=== PATIENT | male | born 1965 | race Caucasian/White ===

== ENCOUNTER 2017-01-23 10:45 | Emergency (ER) | payer SELFPAY ==
[2017-01-23] MEDS ORDERED: ASPIRIN 81 MG TABLET, CHEWABLE PO ONE (11:00)
--- NOTE | 2017-01-23 11:04 | ER Document Report ---
ED Medical Screen (RME) - General Stated Complaint: SHORTNESS OF BREATH Mode of Arrival: Wheelchair Information source: Patient Notes: Patient complains of swelling to the neck and difficulty for the past 3 weeks. Patient states that symptoms worsened over the past 3 days. Patient anxious in triage. Patient with a palpable nodule superior aspect of thyroid. Patient does complain of some chest pain off and on over the past several days. hx: None I have greeted and performed a rapid initial assessment of this patient. A comprehensive ED assessment and evaluation of the patient, analysis of test results and completion of the medical decision making process will be conducted by additional ED providers. TRAVEL OUTSIDE OF THE [place] IN LAST 30 DAYS: No - Related Data Allergies/Adverse Reactions: sulfamethoxazole [From Septra DS] Allergy (Severe, Verified 01/23/17 10:58) Angioedema trimethoprim [From Septra DS] Allergy (Severe, Verified 01/23/17 10:58) Angioedema venom-wasp [Wasp Venom] Allergy (Severe, Verified 01/23/17 10:58) Anaphylaxis Past Medical History Past Surgical History: Reports: Hx Orthopedic Surgery - L elbow - Immunizations Hx Diphtheria, Pertussis, Tetanus Vaccination: Yes Physical Exam - Vital signs Vitals: Temp Pulse Resp BP Pulse Ox 97.6 F 97 26 H 117/84 98 01/23/17 10:54 01/23/17 10:54 01/23/17 10:54 01/23/17 10:54 01/23/17 10:54 - HEENT Neck: Neck mass - Superior aspect of thyroid, palpable nodule Notes: Patient able to manage his oral secretions. - Respiratory Respiratory status: Tachypnea Chest status: Nontender Breath sounds: Nonproductive cough, Wheezing Course - Re-evaluation Re-evalutation: 01/23/17 11:[address] Cai who recommends ordering ultrasound of neck. - Vital Signs Vital signs: Temp Pulse Resp BP Pulse Ox 97.6 F 97 26 H 117/84 98 01/23/17 10:54 01/23/17 10:54 01/23/17 10:54 01/23/17 10:54 01/23/17 10:54
[2017-01-23 11:33] LABS: ABSOLUTE BASOPHILS # (AUTO) 0.1 10^3/uL (0.0-0.2); ABSOLUTE EOSINOPHILS # (AUTO) 0.2 10^3/uL (0.0-0.6); ABSOLUTE LYMPHOCYTES (AUTO) 2.5 10^3/uL (0.5-4.7); ABSOLUTE MONOCYTES (AUTO) 0.5 10^3/uL (0.1-1.4); BASOPHILS % (AUTO) 0.6 % (0-2); EOSINOPHILS % (AUTO) 1.7 % (0-6); HEMATOCRIT 44.6 % (37.9-51.0); HEMOGLOBIN 15.9 g/dL (13.5-17.0); HGB HCT DIFFERENCE 3.1; LYMPHOCYTES % (AUTO) 26.9 % (13-45); MEAN CORPUSCULAR HEMOGLOBIN 34.6 pg (27.0-33.4); MEAN CORPUSCULAR HGB CONC 35.6 g/dL (32.0-36.0); MEAN CORPUSCULAR VOLUME 97 fl (80-97); MONOCYTES % (AUTO) 5.5 % (3-13); RED BLOOD COUNT 4.59 10^6/uL (4.35-5.55); RED CELL DISTRIBUTION WIDTH 12.6 % (11.5-14.0); SEGMENTED NEUTROPHILS % (AUTO) 65.3 % (42-78); WHITE BLOOD COUNT 9.3 10^3/uL (4.0-10.5)
[2017-01-23 11:54] LABS: ALANINE AMINOTRANSFERASE 29 U/L (21-72); ALBUMIN 4.3 g/dL (3.5-5.0); ALKALINE PHOSPHATASE 83 U/L (38-126); ANION GAP 15 (5-19); ASPARTATE AMINO TRANSFERASE 18 U/L (17-59); BILIRUBIN,DIRECT 0.3 mg/dL (0.0-0.4); BILIRUBIN,TOTAL 0.5 mg/dL (0.2-1.3); BLOOD UREA NITROGEN 19 mg/dL (7-20); CALCIUM 9.8 mg/dL (8.4-10.2); CARBON DIOXIDE 21 mmol/L (22-30); CHLORIDE 107 mmol/L (98-107); CREATINE KINASE 79 U/L (55-170); CREATININE RESULT 0.88 mg/dL (0.52-1.25); GLUCOSE 103 mg/dL (75-110); POTASSIUM 4.7 mmol/L (3.6-5.0); SODIUM 142.6 mmol/L (137-145); TOTAL PROTEIN 6.8 g/dL (6.3-8.2)
[2017-01-23 12:09] LABS: TROPONIN I < 0.012 ng/mL
--- NOTE | 2017-01-23 13:17 | EKG REPORT ---
SEVERITY:- NORMAL ECG - SINUS RHYTHM : Confirmed by: Juan Reza MD 23-Jan-2017 13:16:22
--- NOTE | 2017-01-23 15:04 | ER Document Report ---
ED General <KAREN BENZ - Last Filed: 01/23/17 18:35> - General Time seen by provider: 15:10 Mode of Arrival: Wheelchair Information source: Patient TRAVEL OUTSIDE OF THE [place] IN LAST 30 DAYS: No - HPI Onset: Other - see HPI note Associated symptoms: Nonproductive cough, Hurts to breath, Sore throat. denies : Fever Exacerbated by: Coughing, Deep breathing, Other - swallowing <CHARLES GAINES - Last Filed: 01/23/17 18:38> - General Chief Complaint: Shortness Of Breath Stated Complaint: SHORTNESS OF BREATH Notes: Patient is a 51 year old male presenting to the emergency department for swelling and pain in his neck. Patient states he has had these symptoms for the past 3 weeks and they have worsened over the past 3 days. Patient complains of the swelling and pain to this throat. Patient states his pain is exacerbated with coughing. Patient complains of an increased difficulty breathing due to the swelling and pain. Patient also complains of a persistent headache. Patient is not taking any regular medications and does not currently have a primary care physician. (CHARLES GAINES) - Related Data Allergies/Adverse Reactions: sulfamethoxazole [From Septra DS] Allergy (Severe, Verified 01/23/17 10:58) Angioedema trimethoprim [From Septra DS] Allergy (Severe, Verified 01/23/17 10:58) Angioedema venom-wasp [Wasp Venom] Allergy (Severe, Verified 01/23/17 10:58) Anaphylaxis Past Medical History - General Information source: Patient - Social History Smoking Status: Current Every Day Smoker Chew tobacco use (# tins/day): No Frequency of alcohol use: Occasional Drug Abuse: None Family History: None Patient has suicidal ideation: No Patient has homicidal ideation: No - Medical History Medical History: Negative Past Surgical History: Reports: Hx Orthopedic Surgery - L elbow - Immunizations Hx Diphtheria, Pertussis, Tetanus Vaccination: Yes Hx Pneumococcal Vaccination: 01/28/13 <CHARLES GAINES - Last Filed: 01/23/17 18:38> Review of Systems - Review of Systems Constitutional: No symptoms reported. denies: Fever EENT: See HPI Cardiovascular: No symptoms reported Respiratory: No symptoms reported Gastrointestinal: No symptoms reported Genitourinary: No symptoms reported Male Genitourinary: No symptoms reported Musculoskeletal: See HPI Skin: No symptoms reported Hematologic/Lymphatic: No symptoms reported Neurological/Psychological: See HPI, Headaches -: Yes All other systems reviewed and negative <CHARLES GAINES - Last Filed: 01/23/17 18:38> Physical Exam <MELLISAKAREN - Last Filed: 01/23/17 18:35> - Vital signs Interpretation: Normal <CHARLES GAINES - Last Filed: 01/23/17 18:38> - Vital signs Vitals: Temp Pulse Resp BP Pulse Ox 97.6 F 97 26 H 117/84 98 01/23/17 10:54 01/23/17 10:54 01/23/17 10:54 01/23/17 10:54 01/23/17 10:54 - Notes Notes: GENERAL: Well-appearing, well-nourished and in no acute distress HEAD: Atraumatic, normocephalic EYES: Pupils equal round and reactive to light, extraocular movements intact, sclera anicteric, no conjunctival injection or discharge ENT: Nares patent, oropharynx clear without exudates, moist mucous membranes, normal TMs NECK: Normal range of motion, mobile right submandibular lymph node LUNGS: Decreased breath sounds bilaterally, mild wheezing HEART: Regular rate and rhythm without murmurs ABDOMEN: Soft, non-tender, normoactive bowel sounds. No guarding, no rebound. No masses appreciated. No [place] sign BACK: No CVA tenderness. EXTREMITIES: Normal range of motion, no calf tenderness, no edema NEUROLOGICAL: Cranial nerves grossly intact. Normal speech, voice is slightly hoarse, Normal sensory and motor exams. No gross cerebellar abnormalities PSYCH: Anxious, normal affect SKIN: Warm, Dry, normal turgor, no lesions noted (CHARLES GAINES) Course - Laboratory Result Diagrams: 01/23/17 11:18 01/23/17 11:18 - Diagnostic Test Radiology reviewed: Reports reviewed - Chest x-ray shows no active disease and thyroid ultrasound shows enlarged right anterior cervical submandibular lymph node - EKG Interpretation by Sd EKG shows normal: Sinus rhythm - Mild J-point elevation <KAREN BENZ - Last Filed: 01/23/17 18:35> - Laboratory Result Diagrams: 01/23/17 11:18 01/23/17 11:18 - Consults Dr. Vilchis Time consulted: 18:24 Consulted provider: follow-up in office <CHARLES GAINES - Last Filed: 01/23/17 18:38> - Re-evaluation Re-evalutation: 01/23/17 18:31 At the patient's request I spoke with he and his regarding the CT scan things showing a soft tissue mass and fluid collection possibly cystic structure near the right vallecula. With his social history, this would be concerning for cancer as I discussed with him but that he will need further evaluation. We have no ear nose and throat work environment safety inspector, but I did speak with Dr. Vilchis from oncology and he will work the patient in tomorrow and coordinate with ENT for further evaluation and treatment. The patient understands the importance of this, potential diagnosis as well as needed to keep follow-up tomorrow as a work in per Dr. Vilchis. (KAREN BENZ) - Vital Signs Vital signs: Temp Pulse Resp BP Pulse Ox 97.6 F 97 26 H 117/84 98 01/23/17 10:54 01/23/17 10:54 01/23/17 10:54 01/23/17 10:54 01/23/17 10:54 - Laboratory Laboratory results interpreted by me: 01/23/17 01/23/17 11:18 11:18 MCH 34.6 H Carbon Dioxide 21 L - Consults Dr. Vilchis Reason for consultation: 01/23/17 18:[address] Vilchis and discussed patient; patient will follow-up with Dr. Vilchis in the office tomorrow. (CHARLES GAINES) Discharge <KAREN BENZ - Last Filed: 01/23/17 18:35> <CHARLES GAINES - Last Filed: 01/23/17 18:38> - Discharge Clinical Impression: Vallecular mass Disposition: HOME, SELF-CARE Forms: Smoking Cessation Education Referrals: STEPHEN VILCHIS MD [ACTIVE STAFF] - Follow up tomorrow (Call after 8:30 in the morning for walk-in with Dr. Vilchis tomorrow as I discussed with him. Let them know I talked with him and he agrees with this.) Scribe Attestation: 01/23/17 18:35 I personally performed the services described in the documentation, reviewed and edited the documentation which was dictated to the scribe in my presence, and it accurately records my words and actions. (KAREN BENZ) Scribe Documentation - Scribe Written by Henry:: Charles aGines 01/23/17 15:20 acting as scribe for :: Mellisa <CHARLES GAINES - Last Filed: 01/23/17 18:38>
[2017-01-23] MEDS ORDERED: ACETAMINOPHEN 325 MG TABLET ONE (17:48)
[2017-01-23 18:54] VITALS: BP 139/90
== END 2017-01-23 18:38 | disposition home or self-care (01) ==
LOC: ER 10:45
DX: R22.1 Localized swelling, mass and lump, neck (principal); R59.0 Localized enlarged lymph nodes; M54.2 Cervicalgia; R07.81 Pleurodynia; R05 Cough; J02.9 Acute pharyngitis, unspecified; R06.00 Dyspnea, unspecified; R06.2 Wheezing; R51 Headache; F17.200 Nicotine dependence, unspecified, uncomplicated; Z88.1 Allergy status to other antibiotic agents; Z91.038 Other insect allergy status; R49.0 Dysphonia
CPT/HCPCS: 36415; 70491; 71020; 76536; 80053; 82550; 82553; 84443; 84484; 85025; 93005; 93010; 99285

== ENCOUNTER 2017-03-08 11:08 | Emergency (ER) | payer OTHER ==
[2017-03-08 11:14] VITALS: BP 157/101
[2017-03-08] MEDS ORDERED: DIPH/PERTUSS(ACELL)/TETANUS VAC/PF 0.5 ML SYR (>=10YO) IM ONE (11:27)
[2017-03-08] MEDS ORDERED: OXYCODONE-ACETAMINOPHEN 5-325 MG TABLET PO ONE (11:27)
--- NOTE | 2017-03-08 11:30 | ER Document Report ---
HPI - HPI Patient complains to provider of: hand injury Onset: Yesterday Onset/Duration: Sudden Quality of pain: Sharp Pain Level: 5 Context: Patient states he was working on a vehicle and the wind caught the vehicle door crushing his left hand. Patient complains of pain over left second through fifth metacarpals. He shouldn't is right-hand dominant. Associated Symptoms: Other - Left hand injury Exacerbated by: Movement Relieved by: Denies Similar symptoms previously: No Recently seen / treated by doctor: No - ROS ROS below otherwise negative: Yes Systems Reviewed and Negative: Yes All other systems reviewed and negative - CONSTITUTIONAL Constitutional: DENIES: Fever - GASTROINTESTINAL Gastrointestinal: DENIES: Nausea - MUSCULOSKELETAL Musculoskeletal: REPORTS: Extremity pain - Left hand, Swelling - DERM Skin Color: Normal Skin Problems: Abrasion - Abrasion over left hand Past Medical History - General Information source: Patient - Social History Smoking Status: Current Every Day Smoker Frequency of alcohol use: Occasional Drug Abuse: None Occupation: truck driver teamster Family History: None Patient has suicidal ideation: No Patient has homicidal ideation: No Renal/ Medical History: Denies: Hx Peritoneal Dialysis Malignancy Medical History: Reports Other - Currently being worked up for possible throat cancer Past Surgical History: Reports: Hx Orthopedic Surgery - L elbow - Immunizations Hx Diphtheria, Pertussis, Tetanus Vaccination: Yes Hx Pneumococcal Vaccination: 01/28/13 Vertical Provider Document - CONSTITUTIONAL Agree With Documented VS: Yes Exam Limitations: No Limitations General Appearance: WD/WN, No Apparent Distress - INFECTION CONTROL TRAVEL OUTSIDE OF THE [place] IN LAST 30 DAYS: No - HEENT HEENT: Atraumatic, Normocephalic - RESPIRATORY Respiratory: No Respiratory Distress O2 Sat by Pulse Oximetry: 96 - CARDIOVASCULAR Pulses: Normal: Radial - MUSCULOSKELETAL/EXTREMETIES Musculoskeletal/Extremeties: MAEW, Tender - Left hand tenderness over left second through fifth metacarpals with 2+ edema. Small abrasion over left fourth metacarpal - NEURO Level of Consciousness: Awake, Alert, Appropriate Motor/Sensory: No Motor Deficit, No Sensory Deficit - DERM Integumentary: Warm, Dry Notes: Abrasion over left fourth metacarpal Course - Vital Signs Vital signs: Temp Pulse Resp BP Pulse Ox 97.5 F 95 20 157/101 H 96 03/08/17 11:13 03/08/17 11:13 03/08/17 11:13 03/08/17 11:13 03/08/17 11:13 - Diagnostic Test Radiology reviewed: Image reviewed, Reports reviewed Procedures - Immobilization Left Hand Pre-Proc Neuro Vasc Exam: Normal Immobilizer type: Shai wrap Performed by: PCT Post-Proc Neuro Vasc Exam: Normal Alignment checked and good: Yes Discharge - Discharge Clinical Impression: Crush injury, Hand pain, left, Elevated blood pressure reading Condition: Stable Disposition: HOME, SELF-CARE Instructions: Crush Injury ([facility]), Sprain ([facility]), Ice & Elevation ([facility]) Additional Instructions: Return immediately for any new or worsening symptoms Followup with your primary care provider, call tomorrow to make a followup appointment Take your pain medication they have at home as prescribed Your blood pressure was mildly elevated today, recheck with primary doctor to have this further evaluated Follow-up with orthopedic DrMakenzie for any continued pain or problems Forms: Elevated Blood Pressure Referrals: [facility] [Provider Group] - Follow up as needed [facility] [Provider Group] - Follow up as needed
== END 2017-03-08 12:47 | disposition home or self-care (01) ==
LOC: ER 11:08
DX: S67.22XA Crushing injury of left hand, initial encounter (principal); W23.0XXA Caught, crushed, jammed, or pinched between moving objects, initial encounter; Y93.89 Activity, other specified; R03.0 Elevated blood-pressure reading, without diagnosis of hypertension; F17.200 Nicotine dependence, unspecified, uncomplicated
CPT/HCPCS: 90471; 90715; 99283

== ENCOUNTER → 2017-03-10 | Outpatient (CLI) | payer OTHER | LOC: RAD 12:11 | PROVIDERS: ATTEND Family Medicine Geriatric Medicine | DX: R06.2 Wheezing (principal); R05 Cough | CPT/HCPCS: 71020 ==

== ENCOUNTER → 2017-03-14 | Outpatient (CLI) | payer OTHER ==
[2017-03-14 17:09] LABS: ABSOLUTE EOSINOPHILS # (AUTO) 0.2 10^3/uL (0.0-0.6); ABSOLUTE LYMPHOCYTES (AUTO) 2.1 10^3/uL (0.5-4.7); ABSOLUTE MONOCYTES (AUTO) 0.4 10^3/uL (0.1-1.4); ABSOLUTE NEUT (AUTO) 6.1 10^3/uL (1.7-8.2); BASOPHILS % (AUTO) 0.5 % (0-2); EOSINOPHILS % (AUTO) 1.8 % (0-6); HEMATOCRIT 47.4 % (37.9-51.0); HEMOGLOBIN 16.4 g/dL (13.5-17.0); HGB HCT DIFFERENCE 1.8; LYMPHOCYTES % (AUTO) 23.6 % (13-45); MEAN CORPUSCULAR HEMOGLOBIN 34.5 pg (27.0-33.4); MEAN CORPUSCULAR HGB CONC 34.5 g/dL (32.0-36.0); MEAN CORPUSCULAR VOLUME 100 fl (80-97); MONOCYTES % (AUTO) 4.9 % (3-13); RED BLOOD COUNT 4.74 10^6/uL (4.35-5.55); SEGMENTED NEUTROPHILS % (AUTO) 69.2 % (42-78); WHITE BLOOD COUNT 8.8 10^3/uL (4.0-10.5)
[2017-03-14 17:27] LABS: ALANINE AMINOTRANSFERASE 37 U/L (21-72); ALBUMIN 4.2 g/dL (3.5-5.0); ALKALINE PHOSPHATASE 81 U/L (38-126); ANION GAP 12 (5-19); ASPARTATE AMINO TRANSFERASE 23 U/L (17-59); BILIRUBIN,DIRECT 0.4 mg/dL (0.0-0.4); BILIRUBIN,TOTAL 0.7 mg/dL (0.2-1.3); BLOOD UREA NITROGEN 15 mg/dL (7-20); CALCIUM 9.4 mg/dL (8.4-10.2); CARBON DIOXIDE 26 mmol/L (22-30); CHLORIDE 105 mmol/L (98-107); CHOLESTEROL 193.46 mg/dL (0-200); CREATININE RESULT 0.86 mg/dL (0.52-1.25); Direct HDL 41 mg/dL (>40); GLUCOSE 94 mg/dL (75-110); POTASSIUM 4.3 mmol/L (3.6-5.0); SODIUM 142.6 mmol/L (137-145); TOTAL PROTEIN 6.9 g/dL (6.3-8.2); TRIGLYCERIDES 93 mg/dL (<150)
[2017-03-14 17:38] LABS: DIRECT LDL 132 mg/dL (<100)
== END ==
LOC: LAB 16:53
PROVIDERS: ATTEND Family Medicine Geriatric Medicine
DX: E66.3 Overweight (principal); R06.2 Wheezing; Z79.899 Other long term (current) drug therapy
CPT/HCPCS: 36415; 80053; 80061; 84443; 85025

== ENCOUNTER 2019-04-20 23:08 | Emergency (ER) | payer SELFPAY ==
[2019-04-21] MEDS ORDERED: ACETAMINOPHEN 325 MG TABLET PO ONE (00:12)
[2019-04-21] MEDS ORDERED: ONDANSETRON HCL INJ/PF 4 MG/2 ML SDV IV ONE (00:12)
[2019-04-21] MEDS ORDERED: IPRATROPIUM/ALBUTEROL 0.5-2.5 MG/3 ML AMPUL NEB ONE ×2 (00:12→01:22)
--- NOTE | 2019-04-21 00:12 | ER Document Report ---
ED General - General Chief Complaint: Fall Stated Complaint: HEADACHE Time Seen by Provider: 04/20/19 23:22 Primary Care Provider: [facility] [Provider Group] - Follow up in 3-5 days [facility] [Provider Group] - Follow up in 3-5 days Notes: Patient is a 53-year-old male who presents to the emergency department after a syncopal episode. His and friend had witnessed him fall. He hit his head. He is under the alcohol. He is a chronic alcoholic and drinks every day. He also smokes 3 packs of cigarettes a day. He denies any past medical history that he knows of. He does not see a regular doctor. He does state that he has some nausea, but has not vomited. He is still complaining of a headache. He was given fentanyl 100 mics IV in route via EMS. Patient states that he does not remember everything. TRAVEL OUTSIDE OF THE [place] IN LAST 30 DAYS: No - Related Data Allergies/Adverse Reactions: sulfamethoxazole [From Septra DS] Allergy (Severe, Verified 03/08/17 11:13) Angioedema trimethoprim [From Septra DS] Allergy (Severe, Verified 03/08/17 11:13) Angioedema venom-wasp [Wasp Venom] Allergy (Severe, Verified 03/08/17 11:13) Anaphylaxis Penicillins Allergy (Verified 04/21/19 00:00) Past Medical History - Social History Smoking Status: Current Every Day Smoker Chew tobacco use (# tins/day): No Frequency of alcohol use: Heavy Drug Abuse: None Family History: None Patient has suicidal ideation: No Patient has homicidal ideation: No Renal/ Medical History: Denies: Hx Peritoneal Dialysis Past Surgical History: Reports: Hx Orthopedic Surgery - L elbow - Immunizations Hx Diphtheria, Pertussis, Tetanus Vaccination: Yes Hx Pneumococcal Vaccination: 01/28/13 Review of Systems - Review of Systems Notes: REVIEW OF SYSTEMS: CONSTITUTIONAL : Denies recent illness. Denies recent unintentional weight loss. Denies fever, chills, or sweats. EENT: Denies eye, ear, throat, or mouth pain, discharge, or symptoms. Denies nasal or sinus congestion. CARDIOVASCULAR: Denies chest pain. RESPIRATORY: Denies shortness of breath, cough, congestion, difficulty breathing, or wheezing. GASTROINTESTINAL: Denies nausea, vomiting, and diarrhea. Denies abdominal pain. Denies constipation. GENITOURINARY: Denies difficulty urinating, burning, blood in urine, urgency or frequency. MUSCULOSKELETAL: Denies neck and back pain. Denies joint pain or swelling. SKIN: Denies rash, itchiness, or lesions HEMATOLOGIC : Denies easy bruising or bleeding. LYMPHATIC: Denies swollen, painful, enlarged glands. NEUROLOGICAL: Denies no numbness or tingling denies weakness. Denies headache. Denies altered mental status. Denies alteration in speech. PSYCHIATRIC: Denies stress, anxiety, alteration in sleep patterns, or depression. All other systems reviewed and negative. Physical Exam - Vital signs Vitals: Resp Pulse Ox 13 97 04/20/19 23:16 04/20/19 23:16 - Notes Notes: PHYSICAL EXAMINATION: GENERAL: Appears well, healthy, well-nourished, no acute distress. Smells like alcohol. HEAD: Normocephalic, atraumatic. EYES: PERRL, conjunctiva normal, all extraocular movements intact, sclera nonicteric ENT: Moist mucous membranes. NECK: Supple, no noticeable swelling, redness, rash. Normal range of motion. LUNGS: Equal breath sounds bilaterally and clear to auscultation. No wheezes rales or rhonchi. CARDIOVASCULAR: S1-S2, regular rate, regular rhythm. Radial pulses 2+, normal. ABDOMEN: Normoactive bowel sounds. Soft, nontender, no guarding, no rebound t enderness, and no masses palpated. EXTREMITIES: Normal strength and range of motion, no pitting or edema. No cyanosis. NEUROLOGICAL: Moves all extremities upon command. Strength 5/5 in all extrem ities. PSYCH: Normal mood, normal affect. SKIN: Warm, dry. No rash, lesions, ulcerations noted. Normal skin turgor. Ecchymosis noted to right eyelid, right upper lip, and nose. Course - Re-evaluation Re-evalutation: 04/21/19 03:03 Patient's hematology and chemistry are unremarkable at this time. His CT of his head did not show an acute bleed. I spoke with the patient and offered him admission to the hospital for further work-up and he specifically said that he does not want to be admitted to the hospital. I told him that he may have risks of a stroke and he could possibly be having TIAs. He states that he still does not want to be admitted for a CVA work-up. I told him to follow-up with [facility] in regards to this visit. He is in agreement with this plan. Follow-up precautions were given. Verbal discharge instructions were given to the patient. They verbalized understanding. They are stable for discharge. Documentation was completed using voice recognition software, therefore there may be some unintended grammatical or punctual errors. - Vital Signs Vital signs: Temp Pulse Resp BP Pulse Ox 98.1 F 22 H 138/84 H 96 04/21/19 03:11 04/21/19 03:01 04/21/19 03:01 04/21/19 03:01 - Laboratory Result Diagrams: 04/20/19 22:45 04/20/19 22:45 Laboratory results interpreted by me: 04/20/19 04/20/19 22:45 22:45 MCV 100 H MCH 34.5 H Sodium 136.2 L Carbon Dioxide 21 L BUN 21 H Discharge - Discharge Clinical Impression: Tobacco abuse, Alcohol abuse Syncopal episodes Qualifiers: Syncope type: unspecified Qualified Code(s): R55 - Syncope and collapse Condition: Stable Disposition: HOME, SELF-CARE Additional Instructions: You were seen today in the emergency department for a syncopal episode, commonly known as passing out. You were offered admission to the hospital, but you have decided that you would like to not be further evaluated for why you passed out. If you pass out again, develop numbness and tingling, shortness of breath, difficulty breathing, or have any other symptoms that are worrisome to you, please return to the emergency department. Please follow-up with one of clinics below for regular primary care. Please cut back on your smoking and alcohol u se. Referrals: [facility] [Provider Group] - Follow up in 3-5 days [facility] [Provider Group] - Follow up in 3-5 days
[2019-04-21 00:25] LABS: ABSOLUTE EOSINOPHILS # (AUTO) 0.2 10^3/uL (0.0-0.6); ABSOLUTE LYMPHOCYTES (AUTO) 2.9 10^3/uL (0.5-4.7); ABSOLUTE MONOCYTES (AUTO) 0.6 10^3/uL (0.1-1.4); ABSOLUTE NEUT (AUTO) 6.1 10^3/uL (1.7-8.2); BASOPHILS % (AUTO) 0.4 % (0-2); HEMOGLOBIN 16.2 g/dL (13.5-17.0); LYMPHOCYTES % (AUTO) 29.5 % (13-45); MEAN CORPUSCULAR HEMOGLOBIN 34.5 pg (27.0-33.4); MEAN CORPUSCULAR HGB CONC 34.6 g/dL (32.0-36.0); MEAN CORPUSCULAR VOLUME 100 fl (80-97); MONOCYTES % (AUTO) 6.3 % (3-13); PLATELET COUNT 241 10^3/uL (150-450); RED BLOOD COUNT 4.71 10^6/uL (4.35-5.55); RED CELL DISTRIBUTION WIDTH 13.1 % (11.5-14.0); SEGMENTED NEUTROPHILS % (AUTO) 61.8 % (42-78); TOTAL CELLS COUNTED % (AUTO) 100 %; WHITE BLOOD COUNT 9.9 10^3/uL (4.0-10.5)
[2019-04-21 00:38] LABS: ALANINE AMINOTRANSFERASE 36 U/L (21-72); ALBUMIN 4.5 g/dL (3.5-5.0); ALKALINE PHOSPHATASE 85 U/L (38-126); ANION GAP 13 (5-19); ASPARTATE AMINO TRANSFERASE 24 U/L (17-59); BILIRUBIN,DIRECT 0.3 mg/dL (0.0-0.4); BILIRUBIN,TOTAL 0.3 mg/dL (0.2-1.3); BLOOD UREA NITROGEN 21 mg/dL (7-20); CALCIUM 9.4 mg/dL (8.4-10.2); CARBON DIOXIDE 21 mmol/L (22-30); CHLORIDE 102 mmol/L (98-107); GLUCOSE 105 mg/dL (75-110); SODIUM 136.2 mmol/L (137-145); TOTAL PROTEIN 7.1 g/dL (6.3-8.2)
--- NOTE | 2019-04-21 01:14 | RADIOLOGY REPORT (SQ) ---
EXAM DESCRIPTION: CT HEAD WITHOUT IV CONTRAST COMPLETED DATE/TME: 04/21/2019 00:10 CLINICAL HISTORY: 53 years, Male, syncope; ETOH abuse COMPARISON: 10/29/2013. TECHNIQUE: CT brain without contrast. This exam was performed according to our departmental dose optimization program which includes use of automated exposure control, adjustment of the mA and/or kV according to patient size and/or use of iterative reconstruction technique. Images stored on PACS. All CT scanners at this facility use dose modulation, iterative reconstruction, and/or weight based dosing when appropriate to reduce radiation dose to as low as reasonably achievable (ALARA). [facility]: Dose Right [facility]: CareDose [facility]: Dose Right [facility]: Teradose 4D [facility]: [employer] LIMITATIONS: None. FINDINGS: The ventricles, sulci, and cisterns are within normal limits. The colon-white matter differentiation is preserved. There is no mass effect, midline shift, intra- or extra-axial fluid collection/acute hemorrhage. The osseous structures are unremarkable. The paranasal sinuses and mastoid air cells are clear. IMPRESSION: No acute intracranial abnormalities. TECHNICAL DOCUMENTATION: Quality ID # [id number]: Final reports with documentation of one or more dose reduction techniques (e.g., Automated exposure control, adjustment of the mA and/or kV according to patient size, use of iterative reconstruction technique) copyright 2011 [employer]- All Rights Reserved
--- NOTE | 2019-04-21 02:17 | RADIOLOGY REPORT (SQ) ---
CLINICAL HISTORY: syncope COMPARISON: January 23, 2017. TECHNIQUE: XR CHEST 2 VIEWS 04/21/2019 1:22 AM CDT FINDINGS: Cardiac silhouette is normal in size. Lungs are clear without consolidation, atelectasis, mass or edema. There is no pleural effusion. There is no pneumothorax. There are no acute osseous findings. IMPRESSION: Clear lungs.
[2019-04-21] MEDS ORDERED: ALBUTEROL SULFATE HFA (90 MCG/PUFF) 8 GM MDI (1 MDI/ER DISP) IH PRN (03:04)
[2019-04-21 03:05] VITALS: BP 138/84
--- NOTE | 2019-04-21 07:53 | EKG REPORT ---
SEVERITY:- BORDERLINE ECG - SINUS RHYTHM BORDERLINE T ABNORMALITIES, LATERAL LEADS : Confirmed by: Lori Manley MD 21-Apr-2019 07:52:34
== END 2019-04-21 03:11 | disposition home or self-care (01) ==
LOC: ER 23:08
DX: R51 Headache (principal); R55 Syncope and collapse; F10.10 Alcohol abuse, uncomplicated; R11.0 Nausea; F17.210 Nicotine dependence, cigarettes, uncomplicated; W19.XXXA Unspecified fall, initial encounter; Z88.3 Allergy status to other anti-infective agents; Z88.0 Allergy status to penicillin
CPT/HCPCS: 93005; 94640 ×2; 99285; 96374; 36415; 85025; 80053; 71046; 70450; 93010; J2405; J3490; J7620

== ENCOUNTER 2020-05-06 21:58 | Emergency (ER) | payer SELFPAY ==
[2020-05-06] MEDS ORDERED: DIAZEPAM INJ 10 MG/2 ML DISP.SYRIN IV ONE (22:04)
[2020-05-06 22:26] LABS: ABSOLUTE EOSINOPHILS # (AUTO) 0.2 10^3/uL (0.0-0.6); ABSOLUTE LYMPHOCYTES (AUTO) 2.1 10^3/uL (0.5-4.7); ABSOLUTE MONOCYTES (AUTO) 0.4 10^3/uL (0.1-1.4); ABSOLUTE NEUT (AUTO) 6.8 10^3/uL (1.7-8.2); BASOPHILS % (AUTO) 0.3 % (0-2); EOSINOPHILS % (AUTO) 1.6 % (0-6); HEMATOCRIT 45.4 % (37.9-51.0); HEMOGLOBIN 16.1 g/dL (13.5-17.0); LYMPHOCYTES % (AUTO) 21.8 % (13-45); MEAN CORPUSCULAR HEMOGLOBIN 34.7 pg (27.0-33.4); MEAN CORPUSCULAR HGB CONC 35.4 g/dL (32.0-36.0); MEAN CORPUSCULAR VOLUME 98 fl (80-97); MONOCYTES % (AUTO) 4.7 % (3-13); PLATELET COUNT 271 10^3/uL (150-450); RED BLOOD COUNT 4.63 10^6/uL (4.35-5.55); RED CELL DISTRIBUTION WIDTH 13.2 % (11.5-14.0); SEGMENTED NEUTROPHILS % (AUTO) 71.6 % (42-78); TOTAL CELLS COUNTED % (AUTO) 100 %; WHITE BLOOD COUNT 9.5 10^3/uL (4.0-10.5)
--- NOTE | 2020-05-06 22:38 | RADIOLOGY REPORT (SQ) ---
CLINICAL INDICATION: sob. TECHNIQUE: A single portable AP view was obtained of the chest at 2215 hours. COMPARISON: January 23, 2017. FINDINGS: The cardiomediastinal silhouette is normal. The lungs are grossly clear. No evidence of effusion or pneumothorax. Chronic parenchymal lung changes. Crowding at the bases.. IMPRESSION: No evidence of active intrathoracic disease.
[2020-05-06 22:58] LABS: ALBUMIN 4.2 g/dL (3.5-5.0); ALKALINE PHOSPHATASE 87 U/L (38-126); ANION GAP 13 (5-19); ASPARTATE AMINO TRANSFERASE 21 U/L (17-59); BILIRUBIN,TOTAL 0.3 mg/dL (0.2-1.3); BLOOD UREA NITROGEN 14 mg/dL (7-20); CALCIUM 8.7 mg/dL (8.4-10.2); CARBON DIOXIDE 20 mmol/L (22-30); CHLORIDE 95 mmol/L (98-107); GLUCOSE 133 mg/dL (75-110); POTASSIUM 3.9 mmol/L (3.6-5.0); TOTAL PROTEIN 6.8 g/dL (6.3-8.2)
--- NOTE | 2020-05-06 23:13 | ER Document Report ---
Entered by SANTIAGO RIVAS SCRIBE 05/06/200 Acting as scribe for:ROCÍO NEVAREZ IV, MD ED Respiratory Problem - General Chief Complaint: Breathing Difficulty Stated Complaint: DIFFICULTY BREATHING Mode of Arrival: Medic Information source: Patient Notes: This 54 year old male patient brought in by EMS presents to the ED today with complaints of shortness of breath for the past x6 months, more severe today. According to ED nurse, patient had a "coughing spell" prior to arrival where he coughed so hard that he "passed out." EMS administered x3 DuoNeb treatments and 125 mg Solumedrol with minimal relief. Patient is a current every day smoker, smokes approximately x5 ppd per ED nurse. He reports that he has been taking x25 goody powders every day due to left shoulder pain from an injury that occurred x4-5 months ago. He notes a vague history of a mass or lesion that was removed from his throat in [place], date of procedure unknown. TRAVEL OUTSIDE OF THE [place] IN LAST 30 DAYS: No - Related Data Allergies/Adverse Reactions: sulfamethoxazole [From Septra DS] Allergy (Severe, Verified 05/06/20 22:02) Angioedema trimethoprim [From Septra DS] Allergy (Severe, Verified 05/06/20 22:02) Angioedema venom-wasp [Wasp Venom] Allergy (Severe, Verified 05/06/20 22:02) Anaphylaxis Penicillins Allergy (Verified 05/06/20 22:02) Past Medical History - General Information source: Patient - Social History Smoking Status: Current Every Day Smoker Cigarette use (# per day): Yes Chew tobacco use (# tins/day): No Smoking Education Provided: No Family History: Reviewed & Not Pertinent Patient has suicidal ideation: No Patient has homicidal ideation: No Past Surgical History: Reports: Hx Orthopedic Surgery - L elbow - Immunizations Hx Diphtheria, Pertussis, Tetanus Vaccination: Yes Hx Pneumococcal Vaccination: 01/28/13 Review of Systems - Review of Systems Constitutional: No symptoms reported EENT: No symptoms reported Cardiovascular: See HPI, Syncope Respiratory: See HPI, Cough, Short of breath Gastrointestinal: No symptoms reported Genitourinary: No symptoms reported Male Genitourinary: No symptoms reported Musculoskeletal: See HPI, Joint pain - Left shoulder Skin: No symptoms reported Hematologic/Lymphatic: No symptoms reported Neurological/Psychological: No symptoms reported -: Yes All other systems reviewed and negative Physical Exam - Vital signs Vitals: Temp Pulse Resp BP Pulse Ox 97.9 F 92 25 H 125/79 98 05/06/20 21:58 05/06/20 21:58 05/06/20 21:58 05/06/20 21:58 05/06/20 21:58 - General General appearance: Alert - HEENT Head: Normocephalic, Atraumatic Eyes: Normal Pupils: PERRL - Respiratory Respiratory status: Tachypnea Chest status: Nontender Breath sounds: Rhonchi - in all lung matthew. No: Stridor Chest palpation: Normal - Cardiovascular Rhythm: Regular, Tachycardia Heart sounds: Normal auscultation Murmur: No Friction rub: No Gallop: None auscultated - Abdominal Inspection: Normal Distension: No distension Bowel sounds: Normal Tenderness: Nontender - Abdomen soft Organomegaly: No organomegaly - Back Back: Normal, Nontender - Extremities General upper extremity: Normal inspection General lower extremity: Normal inspection - Neurological Neuro grossly intact: Yes Orientation: AAOx4 Crum Lynne Coma Scale Eye Opening: Spontaneous Irvin Coma Scale Verbal: Oriented Crum Lynne Coma Scale Motor: Obeys Commands Crum Lynne Coma Scale Total: 15 - Psychological Associated symptoms: Normal affect, Normal mood - Skin Skin Temperature: Warm Skin Moisture: Dry Skin Color: Normal Course - Re-evaluation Re-evalutation: 05/07/20 03:31 Results of ED MSE discussed with patient. Importance of quitting smoking discussed with patient. All questions were answered prior to discharge. Emergency signs and symptoms, reasons to return to the emergency department discussed with patient. - Vital Signs Vital signs: Temp Pulse Resp BP Pulse Ox 97.9 F 92 22 H 118/54 L 95 05/06/20 21:58 05/06/20 21:58 05/07/20 03:01 05/07/20 03:01 05/07/20 03:01 - Laboratory Result Diagrams: 05/06/20 22:12 05/06/20 22:12 Laboratory results interpreted by me: 05/06/20 05/06/20 22:12 22:12 MCV 98 H MCH 34.7 H Sodium 127.7 L Chloride 95 L Carbon Dioxide 20 L Glucose 133 H - Diagnostic Test Radiology reviewed: Reports reviewed - EKG Interpretation by Me Additional EKG results interpreted by me: 05/07/20 03:35 EKG obtained on 05/06/2020 at 2150 hrs. was interpreted by this MD. Findings: Normal sinus rhythm rate 86, normal axis, P waves proceed QRS complexes, QRS complexes appear narrow, there are T wave inversions in V5 and V6 similar to the patient's last EKG on record done 04/20/2019, there are no obvious patterns of ST segment elevation or depression present to suggest acute myocardial ischemia or infarction. Impression: Normal sinus rhythm with pre-existing T wave inversions in V5 and V6 and nonspecific ST segments. Critical Care Note - Critical Care Note Total time excluding time spent on procedures (mins): 30 - acute shortness of breath, put on bipap Discharge - Discharge Clinical Impression: COPD exacerbation, Tobacco abuse, Tobacco abuse counseling Acute alcohol intoxication Qualifiers: Complication of substance-induced condition: uncomplicated Qualified Code(s): F10.920 - Alcohol use, unspecified with intoxication, uncomplicated Condition: Stable Disposition: HOME, SELF-CARE Additional Instructions: Return to the Emergency Department without delay if any worse. HOME CARE INSTRUCTIONS & INFORMATION: Thank you for choosing us for your medical needs. We hope you're satisfied with the care you received. After you leave, you must properly care for your problem and, at the same time, observe its progress. Any condition can change. Some illnesses can change rapidly over hours or days. If your condition worsens, return to the Emergency Department or see your physician promptly. ABOUT YOUR X-RAYS AND EKG'S: If you had an EKG or X-rays taken, they have been read by the Emergency Physician. The X-rays and EKG's will also be read by a Radiologist or Replenishment Analyst within 24 hours. If discrepancies are noted, you will be notified by telephone. Please be certain the ED has a correct telephone number & address where you can be reached. Also, realize that some fractures or abnormalities do not show up on initial X-rays. If your symptoms continue, see your physician. ABOUT YOUR LABORATORY TEST: If you had laboratory tests, the results have been reviewed by the Emergency Physician. Some test results (for example cultures) may not be available for several days. You will be contacted if any test result shows you need additional treatment. Please be certain the ED has a correct telephone number and address where you can be reached. ABOUT YOUR MEDICATIONS: You will receive instructions on how to take your medicine on the prescription label you receive. Additional information may be provided by the Pharmacy. If you have questions afterwards, call the ED for clarification or further instructions. Some prescribed medications may cause drowsiness. Do not perform tasks such as driving a car or operating machinery without consulting your Pharmacist. If you feel you need a refill of pain medication, your condition will need re-evaluation. Please do not call for a refill of any medication. ABOUT YOUR SIGNATURE: Signature of this document acknowledges to followin. Understanding that you received emergency treatment and that you may be released before al medical problems are known or treated. Please be certain the ED has a correct phone number & address where you can be reached. 2. Acknowledgement that you will arrange for follow-up care as recommended. 3. Authorization for the Emergency Physician to provide information to your follow-up Physician in order to maximize your care. AT ANY TIME, IF YOUR SYMPTOMS CHANGE SIGNIFICANTLY OR WORSEN OR YOU DEVELOP NEW SYMPTOMS, RETURN TO THE EMERGENCY DEPARTMENT IMMEDIATELY FOR RE-EVALUATION. OUR GOAL IS TO PROVIDE EXCELLENT MEDICAL CARE! WE HOPE THAT WE HAVE MET YOUR EXPECTATIONS DURING YOUR EMERGENCY DEPARTMENT VISIT AND THAT YOU FEEL YOU HAVE RECEIVED EXCELLENT CARE! Acute Alcohol Intoxication Your evaluation revealed very high levels of alcohol. You can from drinking a large amount of alcohol rapidly! Further, there's the risk of falls, traffic accidents, and fights. A high portion (about 50 percent) of the serious injuries seen in hospital emergency rooms are caused by alcohol. Alcohol overdosage is usually due to an underlying emotional or psychiatric problem. You may benefit from counselling. If "binge" drinking is an ongoing problem for you, or if you drink ANY AMOUNT of alcohol EVERY day, you most likely have a tendency to alcoholism. You should avoid alcohol totally. We can refer you for treatment. Persons with alcohol problems are often also prone to other addictions -- you should discuss any use of medications or drugs with the doctor. You should be watched at home for the next several hours by someone who has not been drinking. Get extra fluids for the next 24 hours. Call the doctor if there is repeated vomiting, increasing headache, decreasing level of alertness, or any other worsening. Chronic Obstructive Lung Disease You have chronic obstructive lung disease (COPD). The symptoms come from emphysema (damage to small airways, with trapping of air in large sacks in the lung) and chronic bronchitis (repeated infection and damage to larger airways). The cause is almost always cigarette smoking, although dust exposure, asthma, and infections contribute. You should avoid fumes, dust, and smoke (especially tobacco smoke). Your condition will flare from time to time. There is no cure, but the symptoms can be treated. Bronchodilators (asthma medicine) are often helpful. Antibiotics help when infection is present. When shortness of breath is severe, we may prescribe cortisone medication. If medicine doesn't help enough, we can arrange for you to have an oxygen tank at home. Notify your doctor at once if sputum becomes thick, foul, or bloody, if you develop a fever or chest pain, or if your shortness of breath worsens. Stop Smoking You should stop smoking. The tar and chemicals in cigarette smoke are harmful. Smoking has been shown to cause: Emphysema and chronic bronchitis Lung cancer Cancer of the mouth, larynx, stomach, and pancreas Heart disease and stroke Stillbirths and miscarriage Premature aging In addition, smoking increases the chances of respiratory infections and ear infections in children of smokers, and increases the risk of cancer in persons exposed to second-hand smoke. Classes are available to help you stop smoking. If you are serious about wanting to quit, we can help arrange this therapy for you, or you can contact the local lung or cancer association. Prescriptions: Prednisone [Deltasone 10 mg Tablet] 10 mg PO ASDIR PRN #21 tablet PRN Reason: Omeprazole 40 mg PO DAILY 7 Days #7 capsule. Albuterol Sulfate [Proair HFA Inhalation Aerosol 8.5 gm MDI] 2 puff IH Q4H PRN #1 mdi PRN Reason: Referrals: ALLIE MARTINEZ MD [HONORARY] - 05/08/20 I personally performed the services described in the documentation, reviewed and edited the documentation which was dictated to the scribe in my presence, and i t accurately records my words and actions.
[2020-05-06 23:35] LABS: NT PRO BNP 51 pg/mL (<125)
[2020-05-06 23:48] LABS: TROPONIN I < 0.012 ng/mL
[2020-05-07 00:32] LABS: APPEARANCE,URINE CLEAR; BILIRUBIN,URINE NEGATIVE (NEGATIVE); COLOR,URINE STRAW; GLUCOSE, URINE NEGATIVE (NEGATIVE); KETONES,URINE NEGATIVE (NEGATIVE); LEUKOCYTE ESTERASE,URINE NEGATIVE (NEGATIVE); NITRITE,URINE NEGATIVE (NEGATIVE); PROTEIN,URINE NEGATIVE (NEGATIVE); URINE SPECIFIC GRAVITY 1.005; UROBILINOGEN,URINE NEGATIVE mg/dL (<2.0)
[2020-05-07 01:17] LABS: URINE AMPHETAMINES SCREEN NEGATIVE; URINE BARBITURATES SCREEN NEGATIVE; URINE BENZODIAZEPINES SCREEN NEGATIVE; URINE COCAINE SCREEN NEGATIVE; URINE MARIJUANA (THC) SCREEN NEGATIVE; URINE METHADONE SCREEN NEGATIVE; URINE PHENCYCLIDINE SCREEN NEGATIVE
--- NOTE | 2020-05-07 01:27 | RADIOLOGY REPORT (SQ) ---
EXAM DESCRIPTION: CTA chest with contrast CLINICAL HISTORY: 54 years Male, dyspnea, tachycardia COMPARISON: None. TECHNIQUE: Axial images of the chest were performed utilizing intravenous contrast, with sagittal and coronal MIP images and sagittal and coronal reformatted images. This exam was performed according to our departmental dose-optimization program which includes use of Automated Exposure Control, adjustment of the mA and/or kV according to patient size and/or use of iterative reconstruction technique. FINDINGS: There is emphysema. Evaluation of the pulmonary arteries is somewhat limited, due to suboptimal arterial calcification. There is no gross evidence of pulmonary embolus. No evidence of aortic dissection. No evidence of mediastinal or hilar adenopathy. No evidence of pulmonary infiltrate or pleural effusion. IMPRESSION: Emphysema.
[2020-05-07 04:11] VITALS: BP 150/91
--- NOTE | 2020-05-07 17:24 | EKG REPORT ---
SEVERITY:- ABNORMAL ECG - SINUS RHYTHM ATRIAL PREMATURE COMPLEX ABNRM R PROG, CONSIDER ASMI OR LEAD PLACEMENT BORDERLINE T WAVE ABNORMALITIES : Confirmed by: Lori Manley MD 07-May-2020 17:23:53
== END 2020-05-07 04:14 | disposition home or self-care (01) ==
LOC: ER 21:58
DX: J44.1 Chronic obstructive pulmonary disease with (acute) exacerbation (principal); F17.210 Nicotine dependence, cigarettes, uncomplicated; F10.920 Alcohol use, unspecified with intoxication, uncomplicated
CPT/HCPCS: 93005; 99291; 96374; 36415; 80307 ×2; 85025; 80053; 81001; 84484; 83880; 71045; 71275; 93010; J3360